=== PATIENT | female | born 1985 | race Caucasian/White ===

== ENCOUNTER 2019-11-02 13:03 | Emergency (ER) | payer BC, SELFPAY ==
--- NOTE | ~2019-11-02 | CT_ITS ---
EXAMINATION: CT abdomen pelvis w con INDICATION: Hematochezia TECHNIQUE: Computed tomographic images of the abdomen and pelvis were obtained after the administrati on of 100 cc of Omnipaque 350 intravenous contrast. The dose-length product (DLP) was 1032.06 mGy-cm. Automated exposure control and iterative reconstruction technique were employed. COMPARISON: 04/09/2018 FINDINGS: The lung bases are clear. The heart size is normal. The liver, spleen, pancreas, gallbladde r, and adrenal glands are normal. The kidneys are unremarkable. The appendix is normal. No pathologic ally enlarged abdominal or pelvic lymph nodes are identified. There is no free intraperitoneal gas or evidence of bowel obstruction. There is a 2.2 cm left adnexal cyst. The visualized osseous structure s are unremarkable. IMPRESSION: 1. No CT correlate for the patient's symptoms. Reviewed, dictated and finalized at location A.
[2019-11-02 13:06] VITALS: BP 144/96; PULSE 83; RESP 18; TEMP 36.2; O2SAT 100
[2019-11-02 13:17] VITALS: BP 136/90; PULSE 71; RESP 19; O2SAT 99
[2019-11-02 13:21] VITALS: BP 140/82; PULSE 83; RESP 21
[2019-11-02 13:51] LABS: Basophils Absolute Auto 0.1 K/mm3 (0.0-0.1); Basophils Percent Auto 0.8 % (0.2-1.2); Eosinophils Absolute Auto 0.4 K/mm3 (0-0.3); Eosinophils Percent Auto 4.1 % (0-4.4); Hematocrit 37.2 % (37.0-47.0); Hemoglobin 13.1 g/dL (12.0-15.0); Immature Granulocyte Absolute 0.05 K/mm3 (0.00-0.031); Immature Granulocyte Percent A 0.5 % (0-0.5); Lymphocytes Absolute Auto 3.14 K/mm3 (0.9-3.2); Lymphocytes Percent Auto 32.2 % (18.3-44.2); Mean Corpuscular HGB Conc 35.2 g/dl (32-36); Mean Corpuscular Volume 85.3 fl (80-100); Mean Platelet Volume 10.3 fl (7.4-10.4); Monocytes Absolute Auto 0.6 K/mm3 (0.1-0.6); Monocytes Percent Auto 6.1 % (2.6-8.5); Neutrophils Absolute Auto 5.5 K/mm3 (1.3-6.7); Neutrophils Percent Auto 56.3 % (45.5-73.1); Platelet Count Result 247 k/mm3 (150-375); Red Blood Count 4.36 M/mm3 (4.2-5.4); Red Cell Distribution Width 12.5 % (11.5-14.5); White Blood Count 9.8 K/mm3 (4.5-10.0)
[2019-11-02 14:09] LABS: Alanine Aminotransferase 60 U/L (4-35); Albumin Level 4.5 g/dL (3.5-5.1); Alkaline Phosphatase 74 U/L (38-126); Aspartate Amino Transferase 48 U/L (14-36); Bilirubin,Total 0.4 mg/dL (0.2-1.3); Blood Urea Nitrogen 8 mg/dL (7-17); Calcium 8.8 mg/dL (8.4-10.2); Carbon Dioxide 24 mmol/L (22-30); Chloride 102 mmol/L (98-107); Estimated CRCL calculation 139 ml/min; Estimated Glomerular Filt Rate > 60; Glucose 144 mg/dL (65-105); Lipase 38 U/L (23-300); Potassium 3.9 mmol/L (3.4-5.0); Sodium 134 mmol/L (137-145)
--- NOTE | 2019-11-02 14:48 | ED.ABDPAIN ---
HPI - Abdominal Pain General Chief Complaint: Abdominal Pain Stated Complaint: bloody stools/vomiting Time Seen by Provider: 11/02/19 13:22 Source: patient Mode of arrival: ambulatory Limitations: no limitations History of Present Illness HPI narrative: Patient presents the emergency department for diarrhea x2 days. Reports she had seen bright red blood in the stool yesterday. Also reports some vomiting yesterday. Reports some lower abdominal discomfort. Denies fever, or dysuria. Related Data Home Medications Medication Instructions Recorded Confirmed trazodone 100 mg PO HS 03/06/19 03/06/19 venlafaxine 225 mg PO DAILY 03/06/19 03/06/19 Allergies Allergy/AdvReac Type Severity Reaction Status Date / Time Corticosteroids Allergy Intermediate SWELLING Verified 11/02/19 13:16 (Glucocorticoids) AT INJECTION SITE cortisone Allergy Unknown Swelling Verified 11/02/19 13:16 Review of Systems Review of Systems: Narrative: CONSTITUTIONAL: Denies fever GASTROINTESTINAL: Reports abdominal pain, nausea, vomiting, and diarrhea. GENITOURINARY: Denies dysuria or hematuria. All systems reviewed & are unremarkable except as noted in HPI and below PMFSH Past Medical History Medical History (Updated 11/02/19 @ 17:33 by Jessie Gonzáles PA-C) History of endometriosis Migraine Right ovarian cyst Surgical History Surgical History H/O arthroscopy of right knee History of removal of ovarian cyst History of tonsillectomy and adenoidectomy Social History Social History Smoking status: Never smoker Alcohol intake: current Gender identity (if verbalized by the patient): Female Exam Narrative: Exam Narrative: GENERAL: Well-appearing, well-nourished, and in no acute distress. HEAD: Normocephalic, atraumatic. EYES: EOMI. CHEST: Clear to auscultation. No respiratory distress. No wheezes rales or rhonchi HEART: Regular rate and rhythm. No murmur heard. Normal peripheral pulses. ABDOMEN: Soft, nondistended, normal active bowel sounds. Mild tenderness palpation throughout the lower abdomen, without guarding EXTREMITIES: Normal range of motion. No edema. SKIN: Warm, dry, no rash. NEURO: No focal deficits. Alert and oriented x3. PSYCH: Normal mood and affect RECTAL: Hemoccult negative. Nonthrombosed external hemorrhoid without active bleeding Course Consultations Consultation #1: Spoke with patient's primary about work-up for follow-up for new onset diabetes. Date: 11/02/19 Time: 17:31 Vital Signs Vital signs: Vital Signs Temperature 97.2 F L 11/02/19 13:06 Pulse Rate 83 11/02/19 13:06 Respiratory Rate 18 11/02/19 13:06 Blood Pressure 144/96 H 11/02/19 13:06 Pulse Oximetry 100 11/02/19 13:06 Temperature 97.2 F L 11/02/19 13:06 Pulse Rate 81 11/02/19 16:30 Respiratory Rate 16 11/02/19 16:30 Blood Pressure 139/85 11/02/19 16:30 Pulse Oximetry 100 11/02/19 16:30 MDM - Abdominal Pain MDM Narrative Medical decision making narrative: Patient presents the emergency department for vomiting and diarrhea. Patient did report some bright red blood in her stool. She was Hemoccult negative today. She did have a small, nonthrombosed external hemorrhoid. She is afebrile and nontoxic-appearing. CBC is without acute findings. Metabolic panel with mild transaminitis. Also with elevation in blood glucose to 144. I did obtain a hemoglobin A1c which was 7.2. UA without evidence of infection. Bedside negative. CT scan of the abdomen and pelvis is without acute findings. Spoke with patient's primary about work-up for follow-up for new onset diabetes. Patient is stable and felt appropriate for the outpatient evaluation. She was given warnings to return to the ER Lab Data Attestation: I reviewed the patient's lab results. Result diagrams: 11/02/19 13:44
[2019-11-02 14:58] LABS: Add Urine Microscopic? YES; Appearance Urine Clear (Clear); Bacteria Urine Trace /hpf; Bilirubin Urine Negative (Negative); Blood Urine Negative (Negative); Color Urine Yellow (Yellow); Glucose Urine UA 3+ mg/dL (Negative); Ketones Urine Negative (Negative); Leukocyte Esterase Ur Negative LEU/UL (Negative); Mucus Urine Rare /lpf; Nitrate Urine Negative (Negative); Protein Urine 1+ mg/dL (Negative); RBC Urine 0-2 /hpf (0-2); Specific Grav Ur 1.027 (1.001-1.035); Squamous Epithelial Cell Urine Few /hpf (Few); Urobilinogen Urine Negative mg/dL (<2.0); WBC Urine 0-3 /hpf
[2019-11-02 15:29] VITALS: BP 130/86; PULSE 74; RESP 19; O2SAT 99
--- NOTE | 2019-11-02 15:40 | PC.NURSE ---
called lab and spoke with Gen to add on a HGB A1C at 1539
[2019-11-02 15:52] LABS: Hemoglobin A1C 7.2 % (<5.7)
[2019-11-02] MEDS: ONDANSETRON INJ 4 MG/2 ML VIAL IV PUSH (16:29)
[2019-11-02 16:30] VITALS: BP 139/85; PULSE 81; RESP 16; O2SAT 100
[2019-11-02] MEDS: SODIUM CHLORIDE 0.9% IV 1,000 ML 999 ML IV CONT (16:30)
[2019-11-02 18:34] VITALS: BP 135/81; PULSE 63; RESP 19; O2SAT 100
== END 2019-11-02 18:35 | disposition home or self-care (01) ==
PROVIDERS: Physician Assistant; Emergency Provider Emergency Medicine; PCP Family Medicine
DX: R19.7 Diarrhea, unspecified (principal); E11.9 Type 2 diabetes mellitus without complications
CPT/HCPCS: 36415; 74177; 80053; 81001; 81025; 83036; 83690; 85025; 96365; 96375; 99284; J0131; J2405; J7030; Q9967

== ENCOUNTER 2020-03-14 17:55 | Emergency (ER) | payer BC, SELFPAY ==
[2020-03-14 18:04] VITALS: BP 130/84; PULSE 114; RESP 20; TEMP 36.7; O2SAT 100
--- NOTE | 2020-03-14 18:09 | ED.SKABFB ---
HPI - Skin/Abscess/Foreign Bdy General Chief complaint: Skin/Abscess/Foreign Body Stated complaint: rash Time Seen by Provider: 03/14/20 18:10 Source: patient and RN notes reviewed History of Present Illness HPI narrative: Patient is a 35-year-old female who presents the urgent care with complaints of a itchy tender rash to the abdomen, surrounding the laparoscopic incisions. Patient states that she had laparoscopic surgery for endometriosis on March 06. States that she did call the surgeon and was directed to take Benadryl and use hydrocortisone cream. Patient states the areas have not improved and have gotten larger in size. Patient denies of any drainage from the incisions. States that she has not been covering them with any bandages. Denies of any fever, nausea, vomiting. No other acute complaints. Denies any complications from the laparoscopic surgery. No acute distress noted. Patient aware of the plan of care. Some parts of this dictation were generated by voice recognition software and may contain typographical and/or grammatical inaccuracies. Related Data Home Medications Medication Instructions Recorded Confirmed trazodone 100 mg PO HS 03/06/19 03/14/20 venlafaxine 225 mg PO DAILY 03/06/19 11/04/19 cyclobenzaprine 10 mg PO PRN PRN 03/14/20 03/14/20 ibuprofen See Rx Instructions .ROUTE 03/14/20 03/14/20 .COMPLEX PRN montelukast 10 mg PO DAILY 03/14/20 03/14/20 ondansetron HCl 03/14/20 trazodone 03/14/20 venlafaxine 75 mg PO DAILY 03/14/20 03/14/20 Allergies Allergy/AdvReac Type Severity Reaction Status Date / Time Corticosteroids Allergy Intermediate SWELLING Verified 03/14/20 18:06 (Glucocorticoids) AT INJECTION SITE cortisone Allergy Unknown Swelling Verified 03/14/20 18:06 Review of Systems Review of Systems: Narrative: CONSTITUTIONAL: Denies fever, chills, or sweats. EYES: Denies visual changes, redness, or discharge. ENT: Denies rhinorrhea, congestion, sore throat, or otalgia. CARDIOVASCULAR: Denies chest pain, palpitations, or edema. RESPIRATORY: Denies cough or dyspnea. GASTROINTESTINAL: Denies abdominal pain, nausea, vomiting, or diarrhea. GENITOURINARY: Denies dysuria or hematuria. SKIN: Reports of an itchy raised rash surrounding the laparoscopic incisions to the abdomen MUSCULOSKELETAL: Denies back pain, joint pain, or myalgia. NEUROLOGIC: Denies headache, numbness, or weakness. All other systems reviewed are negative, except as documented in HPI. [facility] Past Medical History Medical History (Updated 03/14/20 @ 18:14 by ABDI Silverman) History of endometriosis Migraine Right ovarian cyst Surgical History Surgical History (Updated 03/14/20 @ 18:14 by ABDI Silverman) H/O arthroscopy of right knee History of removal of ovarian cyst History of tonsillectomy and adenoidectomy Family History Family History Mother Family history of mental disorder Depression Father Hypertension Grandparent Family history of pancreatic cancer Family history of lung cancer Family history of malignant neoplasm of breast Other Diabetes mellitus Family history of malignant neoplasm of male breast Social History Social History Smoking status: Never smoker Alcohol intake: current Gender identity (if verbalized by the patient): Female Comments At the time of my signature, I reviewed and agree with the nursing past medical, surgical, social, and family history. There is no relevant family history pertinent to the patient complaint. Exam Narrative: Exam Narrative: GENERAL: This is a well-nourished, well-developed patient, in no apparent distress. HEAD: normocephalic, atraumatic. EYES: PERRL. Sclera clear/white. Vision is grossly intact. EARS: External ears normal NOSE: External nose normal with no obvious nasal discharge, nares without re
== END 2020-03-14 18:20 | disposition home or self-care (01) ==
PROVIDERS: Emergency Provider Nurse Practitioner Family; PCP Family Medicine
DX: T81.49XA Infection following a procedure, other surgical site, initial encounter (principal); L08.9 Local infection of the skin and subcutaneous tissue, unspecified; L23.9 Allergic contact dermatitis, unspecified cause
CPT/HCPCS: 99213; G0463

== ENCOUNTER 2020-03-15 10:15 | Emergency (ER) | payer BC, SELFPAY ==
--- NOTE | ~2020-03-15 | CT_ITS ---
EXAMINATION: CT abdomen pelvis w con DATE: 03/15/2020 12:21 INDICATION: Abdominal pain. TECHNIQUE: Computed tomography (CT) of the abdomen and pelvis was performed with 100 mL Omnipaque 350 intravenous contrast. Automated exposure control and iterative reconstruction technique were employe d. The dose-length product was 948.43 mGy-cm. COMPARISON: CT abdomen and pelvis 11/02/2019 FINDINGS: The visualized portions of the lung bases demonstrate minimal atelectasis in right middle l obe. No pleural effusion. The heart size is normal. No pericardial effusion. The liver, gallbladder, spleen, pancreas, adrenal glands, and kidneys are normal. There are no dilated loops of bowel. The ap pendix is normal. There are no pathologically enlarged lymph nodes. There is a small volume of pelvic ascites. There are areas of fat stranding in the abdominal wall, consistent with inflammation at veronika gical sites. There is a hernia containing fat at a port site in right abdomen. There is a chronic lef t L5 pars defect. IMPRESSION: 1. Port site hernia containing fat in right lower quadrant. 2. Small volume of pelvic ascites. 3. Fat stranding in anterior abdominal wall in the areas of recent surgery, consistent with inflammat ion. Reviewed, dictated and finalized at location B. ARD WORKER IMPRESSION: 1. Port site hernia containing fat in right lower quadrant. 2. Small volume of pelvic ascites. 3. Fat stranding in anterior abdominal wall in the areas of recent surgery, con sistent with inflammation.
--- NOTE | 2020-03-15 10:49 | ED.GENADULT ---
HPI - General Adult General Chief complaint: Unspecified Stated complaint: POST OP INCISION REDNESS Time Seen by Provider: 03/15/20 10:21 Source: patient Mode of arrival: ambulatory Limitations: no limitations History of Present Illness HPI narrative: Patient is a 35-year-old female who presents with redness and swelling around her surgical sites patient had laparoscopic surgery on the third at [facility] in the last 3 days developed redness and swelling involving all of her incision sites. Patient notes mild discomfort in the abdomen with some nausea. Patient went to urgent care yesterday started on antibiotic has had 3 doses at this point and notes that the redness tenderness and swelling is increasing. Patient denies other complaints or concerns specifically no URI symptoms vaginal bleeding discharge or urinary symptoms Related Data Home Medications Medication Instructions Recorded Confirmed trazodone 100 mg PO HS 03/06/19 03/14/20 venlafaxine 225 mg PO DAILY 03/06/19 11/04/19 cyclobenzaprine 10 mg PO PRN PRN 03/14/20 03/14/20 ibuprofen See Rx Instructions .ROUTE 03/14/20 03/14/20 .COMPLEX PRN montelukast 10 mg PO DAILY 03/14/20 03/14/20 ondansetron HCl 03/14/20 trazodone 03/14/20 venlafaxine 75 mg PO DAILY 03/14/20 03/14/20 Allergies Allergy/AdvReac Type Severity Reaction Status Date / Time Corticosteroids Allergy Intermediate SWELLING Verified 03/14/20 18:06 (Glucocorticoids) AT INJECTION SITE cortisone Allergy Unknown Swelling Verified 03/14/20 18:06 Review of Systems Review of Systems: All systems reviewed & are unremarkable except as noted in HPI and below PMFSH Past Medical History Medical History (Updated 03/15/20 @ 15:06 by Jimbo Hussein PA-C) History of endometriosis Migraine Right ovarian cyst Surgical History Surgical History H/O arthroscopy of right knee History of removal of ovarian cyst History of tonsillectomy and adenoidectomy Family History Family History Mother Family history of mental disorder Depression Father Hypertension Grandparent Family history of pancreatic cancer Family history of lung cancer Family history of malignant neoplasm of breast Other Diabetes mellitus Family history of malignant neoplasm of male breast Social History Social History Smoking status: Never smoker Alcohol intake: current Gender identity (if verbalized by the patient): Female Exam Narrative: Exam Narrative: GENERAL: Well-appearing, obese, and in no acute distress. HEAD: Normocephalic, atraumatic. EYES: PERRLA and EOMI. ENT: Nares clear, no rhinorrhea or epistaxis. Mucous membranes moist. CHEST: Clear to auscultation. No respiratory distress. No wheezes rales or rhonchi HEART: Regular rate and rhythm. No murmur heard. Normal peripheral pulses. ABDOMEN: Soft, nontender, distended EXTREMITIES: Normal range of motion. No edema. SKIN: Warm, dry, no rash. Patient with erythema surrounding all of her surgical incision sites with warmth to touch no drainage no fluctuance NEURO: No focal deficits. Alert and oriented x3. Cranial nerves II through XII grossly intact PSYCH: Normal mood and affect. Course Course Emergency Course: Patient in the room at this time treated with medications with slight improvement aware of discussion with her surgeon and agrees with plan was given fluids and antibiotics and antihistamines in the emergency department Consultations Consultation #1: Discussed case with patient's surgeon who is aware of the case has reviewed the case patient to be switched to Augmentin to finish her Medrol Dosepak and to follow with her appointment in clinic and would like the patient to be discharged home at this time Date: 03/15/20 Time: 15:04 Vital Signs Vital signs: Vi
[2020-03-15 11:08] VITALS: BP 103/65; RESP 18; O2SAT 96
[2020-03-15] MEDS: SODIUM CHLORIDE 0.9% IV 1,000 ML 999 ML IV CONT (11:36)
[2020-03-15] MEDS: ONDANSETRON INJ 4 MG/2 ML VIAL IV PUSH (11:36)
[2020-03-15] MEDS: FAMOTIDINE 20 MG/2 ML VIAL IV PUSH (11:36)
[2020-03-15 11:47] LABS: Basophils Absolute Auto 0.1 K/mm3 (0.0-0.1); Basophils Percent Auto 0.4 % (0.2-1.2); Eosinophils Percent Auto 0.1 % (0-4.4); Hematocrit 42.6 % (37.0-47.0); Hemoglobin 14.9 g/dL (12.0-15.0); Immature Granulocyte Absolute 0.47 K/mm3 (0.00-0.031); Immature Granulocyte Percent A 2.1 % (0-0.5); Lymphocytes Absolute Auto 1.97 K/mm3 (0.9-3.2); Lymphocytes Percent Auto 8.7 % (18.3-44.2); Mean Corpuscular Hemoglobin 30.2 pg (26-34); Mean Corpuscular Volume 86.2 fl (80-100); Mean Platelet Volume 9.8 fl (7.4-10.4); Monocytes Absolute Auto 0.6 K/mm3 (0.1-0.6); Monocytes Percent Auto 2.5 % (2.6-8.5); Neutrophils Absolute Auto 19.6 K/mm3 (1.3-6.7); Neutrophils Percent Auto 86.2 % (45.5-73.1); Platelet Count Result 405 k/mm3 (150-375); Red Blood Count 4.94 M/mm3 (4.2-5.4); Red Cell Distribution Width 11.8 % (11.5-14.5); White Blood Count 22.7 K/mm3 (4.5-10.0)
[2020-03-15 11:50] LABS: Add Urine Microscopic? YES; Appearance Urine Clear (Clear); Bacteria Urine Trace /hpf; Bilirubin Urine Negative (Negative); Blood Urine Negative (Negative); Color Urine Yellow (Yellow); Glucose Urine UA 2+ mg/dL (Negative); Ketones Urine Negative (Negative); Leukocyte Esterase Ur Trace LEU/UL (Negative); Mucus Urine Rare /lpf; Nitrate Urine Negative (Negative); Protein Urine Negative (Negative); Specific Grav Ur 1.019 (1.001-1.035); Squamous Epithelial Cell Urine Moderate /hpf (Few); Urobilinogen Urine Negative mg/dL (<2.0)
[2020-03-15 12:06] LABS: Anion Gap 13 mmol/L (8-16); Blood Urea Nitrogen 12 mg/dL (7-17); Calcium 10.4 mg/dL (8.4-10.2); Carbon Dioxide 25 mmol/L (22-30); Chloride 99 mmol/L (98-107); Estimated CRCL calculation 117 ml/min; Estimated Glomerular Filt Rate > 60; Glucose 175 mg/dL (65-105); Potassium 4.3 mmol/L (3.4-5.0); Sodium 137 mmol/L (137-145)
[2020-03-15 12:09] LABS: CRP 1.7 mg/dL (<1.0)
[2020-03-15 12:54] VITALS: BP 135/86; PULSE 99; RESP 18; O2SAT 97
[2020-03-15 15:45] VITALS: BP 140/83; PULSE 104; RESP 18; O2SAT 98
== END 2020-03-15 15:46 | disposition home or self-care (01) ==
PROVIDERS: Emergency Medicine Emergency Medical Services; Emergency Provider Emergency Medicine; PCP Family Medicine
DX: L03.311 Cellulitis of abdominal wall (principal)
CPT/HCPCS: 36415; 74177; 80048; 81001; 81025; 85025; 86140; 96361; 96365; 96375; 99284; J0131; J2405; J2543; J7030; Q9967

== ENCOUNTER 2020-04-14 10:36 | Emergency (ER) | payer BC, SELFPAY ==
--- NOTE | ~2020-04-14 | XR_ITS ---
EXAMINATION: XR chest 2V DATE: 04/14/2020 11:23 INDICATION: Cough. Shortness of breath. TECHNIQUE: Frontal and lateral views of the chest were obtained. COMPARISON: Chest single view 08/12/2015, CT abdomen and pelvis 03/15/2020 FINDINGS: The chest demonstrates clear lungs without pneumonia, pleural effusion, or pneumothorax. Th e heart size is normal. IMPRESSION: 1. No acute cardiopulmonary disease. Reviewed, dictated and finalized at location B. [facility] N[facility]ITIONIST
[2020-04-14 11:05] VITALS: BP 124/86; PULSE 98; RESP 20; TEMP 36.9; O2SAT 97
--- NOTE | 2020-04-14 11:36 | ED.URI ---
HPI - URI/Sore Throat General Chief Complaint: Upper Respiratory Infection Stated Complaint: chest pain/sob History of Present Illness HPI Narrative: This is a 35-year-old female comes in complaining of increased shortness of breath patient states she has been diagnosed with COVID-19 on but her shortness of breath is getting worse. Patient states she called her primary care provider who told her to come in to have a chest x-ray completed. Patient states she has been having a fever denies taking anything for her symptoms. Patient states that shortness of breath is worse when she lays down Related Data Home Medications Medication Instructions Recorded Confirmed trazodone 100 mg PO HS 03/06/19 04/14/20 venlafaxine 225 mg PO DAILY 03/06/19 04/14/20 ibuprofen See Rx Instructions .ROUTE 03/14/20 04/14/20 .COMPLEX PRN montelukast 10 mg PO DAILY 03/14/20 04/14/20 etonogestrel [Implanon] 1 implant SUBDERMAL ONCE 04/14/20 04/14/20 hydroxyzine HCl 25 mg PO BID PRN 04/14/20 04/14/20 Allergies Allergy/AdvReac Type Severity Reaction Status Date / Time Corticosteroids Allergy Intermediate SWELLING Verified 04/14/20 11:10 (Glucocorticoids) AT INJECTION SITE cortisone Allergy Unknown Swelling Verified 04/14/20 11:10 Review of Systems Review of Systems: Narrative: CONSTITUTIONAL: Denies fever, chills, or sweats. EYES: Denies visual changes, redness, or discharge. ENT: Denies rhinorrhea, congestion, sore throat, or otalgia. CARDIOVASCULAR:Denies chest pain, palpitations, or edema. RESPIRATORY: Reports cough or dyspnea. GASTROINTESTINAL: Denies abdominal pain, nausea, vomiting, or diarrhea. GENITOURINARY: Denies dysuria or hematuria. SKIN:[Denies rash or itching. MUSCULOSKELETAL:Denies back pain, joint pain, or myalgia. NEUROLOGIC: Denies headache, numbness, or weakness. PSYCHIATRIC:Denies anxiety or depression PMF Past Medical History Medical History (Updated 04/14/20 @ 11:43 by Alondra Shah NP) History of endometriosis Migraine Right ovarian cyst Surgical History Surgical History H/O arthroscopy of right knee History of removal of ovarian cyst History of tonsillectomy and adenoidectomy Family History Family History Mother Family history of mental disorder Depression Father Hypertension Grandparent Family history of pancreatic cancer Family history of lung cancer Family history of malignant neoplasm of breast Other Diabetes mellitus Family history of malignant neoplasm of male breast Social History Social History Smoking status: Never smoker Alcohol intake: current Gender identity (if verbalized by the patient): Female Comments At time as signature, I have reviewed and agree with nursing past medical, social, surgical and family history. Please see nursing chart for further information. There is no relevant family history pertinent to the presenting complaint. Exam Narrative: Exam Narrative: GENERAL:, well-nourished, Patient appears uncomfortable HEAD:Normocephalic, atraumatic. EYES: PERRLA and EOMI. ENT: Nares clear, no rhinorrhea or epistaxis. Mucous membranes moist. Notable nasal congestion NECK: Supple. CHEST: No respiratory distress. Able to take deep full breaths clear to auscultation HEART: Regular rate and rhythm slightly tacky. No murmur heard. Normal peripheral pulses. ABDOMEN: Soft, nontender, nondistended, normal active bowel sounds. EXTREMITIES: Normal range of motion. No edema. SKIN: Warm, dry, no rash. NEURO: No focal deficits. Alert and oriented x3. Course Course Emergency Course: Chest x-ray reviewed by myself Results FINDINGS: The chest demonstrates clear lungs without pneumonia, pleural effusion, or pneumothorax. The heart size is normal. IMPRESSION: 1. No acute
== END 2020-04-14 11:57 | disposition home or self-care (01) ==
PROVIDERS: Emergency Provider Nurse Practitioner Family; PCP Family Medicine
DX: U07.1 COVID-19 (principal); N80.9 Endometriosis, unspecified; F41.9 Anxiety disorder, unspecified; F32.9 Major depressive disorder, single episode, unspecified; E11.9 Type 2 diabetes mellitus without complications
CPT/HCPCS: 71046; 99213; G0463

== ENCOUNTER 2020-06-16 08:35 | Outpatient (CLI) | payer BC, SELFPAY ==
--- NOTE | 2020-06-16 08:37 | ECG_ITS ---
Measurements Intervals [place] Rate: 91 P: 21 OR: 136 QRS: 6 QRSD: 85 T: 20 QT: 367 QTc: 453 Interpretive Statements SINUS RHYTHM POOR R WAVE PROGRESSION, ANTERIOR LEADS BORDERLINE T WAVE ABNORMALITY- ANTEROLATERAL LEADS BASELINE ARTIFACT- I, II, III, AVR, AVL, AVF BORDERLINE ECG Electronically Signed On 06-16-2020 9:25:41 FIELD CONTACT TECHNICIAN by Jd Saez D.O.
[2020-06-16 09:19] LABS: Anion Gap 13 mmol/L (8-16); Blood Urea Nitrogen 10 mg/dL (7-17); Carbon Dioxide 24 mmol/L (22-30); Chloride 103 mmol/L (98-107); Estimated Glomerular Filt Rate > 60; Glucose 122 mg/dL (65-105); Potassium 4.1 mmol/L (3.4-5.0); Sodium 140 mmol/L (137-145)
== END 2020-06-16 08:36 | disposition home or self-care (01) ==
LOC: ANHSURGERY 08:37
PROVIDERS: Anesthesiology; PCP Family Medicine; Visit Provider Obstetrics & Gynecology
DX: Z01.818 Encounter for other preprocedural examination (principal); E11.9 Type 2 diabetes mellitus without complications
CPT/HCPCS: 36415; 80048; 93005

== ENCOUNTER → 2020-06-17 01:06 | Outpatient (CLI) | payer BC, SELFPAY ==
[2020-06-17 19:48] LABS: SARS-CoV-2 RNA PCR Negative
== END ==
PROVIDERS: Family Provider Internal Medicine; PCP Family Medicine; Visit Provider Obstetrics & Gynecology
DX: Z01.812 Encounter for preprocedural laboratory examination (principal); Z20.822 Contact with and (suspected) exposure to COVID-19
CPT/HCPCS: C9803; U0003; U0005

== ENCOUNTER 2020-06-21 01:36 | Day surgery (SDC) | payer BC, SELFPAY ==
[2020-06-15 14:51] VITALS: BMI 35.6
--- NOTE | 2020-06-20 12:59 | WPDANESEPPF ---
Anes - Initial Pre Proc Eval Procedure: Operation Date: 06/21/20 09:45 Proposed Procedures p Laparoscopic Right Salpingo-Oophorectomy - Kacey Main MD Date/Time: 06/20/20 12:59 Surgeon: Kacey Main MD Pre Op Diagnosis: Cyst On Right Ovary Patient Data Age: 35 Gender: F Height: 1.57 m Weight: 88.5 kg Allergies Allergy/AdvReac Type Severity Reaction Status Date / Time Corticosteroids Allergy Intermediate SWELLING Verified 06/15/20 14:24 (Glucocorticoids) AT INJECTION SITE cortisone Allergy Intermediate Swelling Verified 06/21/20 07:59 Home Medications Medication Instructions Recorded Confirmed Type trazodone 100 mg PO HS 03/06/19 06/21/20 History venlafaxine 225 mg PO DAILY 03/06/19 06/21/20 History blood sugar diagnostic #50 each 11/04/19 11/04/19 Rx blood-glucose meter #1 each 11/04/19 11/04/19 Rx lancets #50 each 11/04/19 11/04/19 Rx flash glucose scanning reader #1 each 11/30/19 Rx metformin 500 mg tablet See Rx Instructions .ROUTE 02/24/20 06/21/20 Rx .COMPLEX #180 tablet montelukast 10 mg PO DAILY 03/14/20 06/21/20 History etonogestrel [Implanon] 1 implant SUBDERMAL ONCE 04/14/20 06/21/20 History hydroxyzine HCl 25 mg PO BID PRN 04/14/20 06/21/20 History ondansetron 8 mg disintegrating 8 mg PO Q12H PRN #14 tablet 06/05/20 06/21/20 Rx tablet flash glucose sensor See Rx Instructions .ROUTE 06/06/20 06/15/20 Rx .COMPLEX #1 ea Patient hx anesthesia problems: none Family hx anesthesia problems: none PMFSH Past Medical History Medical History (Updated 06/20/20 @ 12:59 by Luis Daniel Manning DO) Elevated liver enzymes History of endometriosis Migraine PID (pelvic inflammatory disease) Right ovarian cyst Type 2 diabetes mellitus without complications Surgical History Surgical History H/O arthroscopy of right knee History of removal of ovarian cyst History of tonsillectomy and adenoidectomy Family History Family History Mother Family history of mental disorder Depression Father Hypertension Grandparent Family history of pancreatic cancer Family history of lung cancer Family history of malignant neoplasm of breast Other Diabetes mellitus Family history of malignant neoplasm of male breast Social History Social History Smoking status: Never smoker Gender identity (if verbalized by the patient): Female Spiritual care concerns: No Anes - Eval Final PreProcedure Day of Procedure 06/20/20 12:59 Patient weight: obese Heart: regular rate and rhythm Lungs: clear to auscultation and normal air movement Airway: Mallampati scale class II Neurological: alert and oriented Last oral intake: >/= 8 hours ASA classification: III Emergent: no Anesthetic plan: proceed Anesthesia type and monitoring: general ETT and standard monitoring Informed Consent: The patient's anesthetic plan and its attendant risks and benefits were discussed with the patient/family/POA. Questions were solicited and answers provided to the satisfaction of the patient/family/POA.
[2020-06-21] VITALS (14 sets, daily range): BP systolic 91–132; BP diastolic 56–101; PULSE 95–117; RESP 14–22; TEMP 36.6–36.8; O2SAT 93–98
[2020-06-21] MEDS: LACTATED RINGERS 1,000 ML 30 ML IV CONT ×2 (08:10→12:29)
[2020-06-21 08:20] LABS: Glucose Point of Care 135 (65-105)
[2020-06-21] MEDS: ACETAMINOPHEN 500 MG TABLET 1000 MG PO (08:32)
[2020-06-21] MEDS: KETOROLAC 15 MG/ML VIAL (*BKC) IV PUSH (08:33)
--- NOTE | 2020-06-21 10:14 | WPDHPUPDATE1 ---
History and Physical Update Update Date/Time: 06/21/20 10:14 History and Physical has been reviewed, including an updated exam of the patient. There are NO changes in the patient's condition. Risks, benefits, and alternatives have been discussed and questions answered. Patient agrees to proceed with procedure.
--- NOTE | 2020-06-21 12:14 | SUR.OPER ---
EBL:20cc
--- NOTE | 2020-06-21 12:22 | P.OP_ITS ---
Procedure Note - Detailed Date of procedure: 06/21/20 Pre-op diagnosis: Cyst On Right Ovary, pelvic pain Post-op diagnosis: same (Left ovarian cyst, pelvic adhesions, endometriosis) Procedure performed: Adhesiolysis, left ovarian cystectomy, right salpingo- oophorectomy, resection of endometriosis. Description of procedure: The patient was taken the operating room. She was prepped and draped in the dorsal lithotomy position after induction of general anesthesia. A 5 mm left upper quadrant incision was made in the abdominal skin with a scalpel. A 5 mm trocar was inserted the intra-abdominal cavity under direct visualization of the scope. A 11 mm left lower quadrant incision was made with the scalp on the abdominal skin and a 11 mm trocar was inserted the intra-abdominal cavity under direct visualization of the scope. A 5 mm in fraumbilical incision was made with scalpel and a 5 mm trocar was inserted into the intra-abdominal cavity under direct visualization of the scope. An additional 4th trocar was placed in the right lower quadrant. This was placed through a 5 mm skin incision, made with a scalpel, 5 mm trocar was placed. The right ovary and fallopian tube was dissected off of the right pelvic wall. It was densely adherent to the right pelvic wall. The infundibulum pelvic ligament was cauterized after identification of the ureter. It was transected with scissors. The para ovarian tissue was dissected. It was cauterized and transected with scissors. The suspensory ligament the ovary was cauterized transected. The tube and ovary came out the left lower quadrant trocar, after it was amputated. The cyst on the left ovary was cauterized and transected. The left ovary had be dissected off the left pelvic sidewall. Adhesiolysis was performed on both ovaries. This is meant to about 30 minutes dissection. The ureter was dissected out on the right. The peritoneal surfaces were very densely fibrotic and immobile. A peritoneal lesion in the posterior cul-de-sac at the level the cervix and right adnexa was dissected out. This was done with sharp and blunt dissection using cautery. The ovary had been dissected out and the anatomy of the ovary was away from the area dissection. There was marked blood supply to this area. A considerable amount of cautery was focused in this area of the dissection and cervix. The pelvis was irrigated with copious amounts of normal saline. The pneumoperit oneum was reduced. The trocars were removed. The patient was taken recovery room stable condition. Sponge lap and needle counts were correct x2. Anesthesia: GETA Surgeon: Kacey Main MD Estimated blood loss (mL): 50 Drains: No Packing: No Complications: No immediate complications Condition: stable Disposition: PACU Findings: Dense scarring throughout the posterior cul-de-sac, immobile peritoneum, adhesions between the posterior cul-de-sac and the ovaries, apparent endometrial implants in the posterior cul-de-sac.
[2020-06-21 12:37] LABS: Glucose Point of Care 112 (65-105)
[2020-06-21] MEDS: fentaNYL CITRATE INJ (*CRX) 100 MCG/2 ML VIAL 25 MCG IV PUSH ×8 (13:25→14:35)
[2020-06-21] MEDS: HYDROmorphone HCL INJ (*CRX) 1 MG/ML SYR IV PUSH (14:40)
[2020-06-21] MEDS: oxyCODONE HCL (*CRX) 5 MG TAB IR PO (15:15)
[2020-06-21] MEDS: ONDANSETRON INJ 4 MG/2 ML VIAL IV PUSH (15:18)
== END 2020-06-21 15:58 | disposition home or self-care (01) ==
PROVIDERS: Family Provider Internal Medicine; PCP Family Medicine; Visit Provider Obstetrics & Gynecology
PROC: (CPT 49320; principal; 2020-06-21 09:45)
DX: N83.01 Follicular cyst of right ovary (principal); N73.6 Female pelvic peritoneal adhesions (postinfective); N94.89 Other specified conditions associated with female genital organs and menstrual cycle; N83.202 Unspecified ovarian cyst, left side; N80.3 Endometriosis of pelvic peritoneum; R10.2 Pelvic and perineal pain; E11.9 Type 2 diabetes mellitus without complications; Z79.84 Long term (current) use of oral hypoglycemic drugs; E66.9 Obesity, unspecified; Z68.35 Body mass index [BMI] 35.0-35.9, adult
CPT/HCPCS: 58661; 58662; 82948; 88304; 88305; A9270; J0330; J1170; J1885; J2250; J2370; J2405; J2704; J2710; J3010; J7030; J7120

== ENCOUNTER 2020-06-26 10:43 | Emergency (ER) | payer BC, SELFPAY ==
--- NOTE | ~2020-06-26 | XR_ITS ---
EXAMINATION: XR chest 1V portable EXAM DATE: 06/26/2020 11:52 INDICATION: Postoperative fever. TECHNIQUE: Portable AP frontal chest x-ray was obtained. Comparison is made to prior examination from 04/14/2020. FINDINGS: The lungs are clear. There are no pleural effusions. Cardiac silhouette is prominent but magnified on this AP technique. There is no pneumothorax suspected. The bones and soft tissues are unremarkable. IMPRESSION: No acute cardiopulmonary findings. Reviewed, dictated and finalized at location B. BREAK CUTTER
--- NOTE | ~2020-06-26 | CT_ITS ---
EXAMINATION: CT abdomen pelvis w con DATE: 06/26/2020 15:27 INDICATION: Abdominal pain. TECHNIQUE: Computed tomography (CT) of the abdomen and pelvis was performed with 100 mL Omnipaque 350 intravenous contrast. Automated exposure control and iterative reconstruction technique were employe d. The dose-length product was 734.27 mGy-cm. COMPARISON: CT abdomen and pelvis 03/15/2020 FINDINGS: The visualized portions of the lung bases demonstrate minimal atelectasis in right middle l obe. No pleural effusion. The heart size is normal. No pericardial effusion. There is diffuse hepatic steatosis. The gallbladder, spleen, pancreas, adrenal glands, and kidneys are normal. There are no d ilated loops of bowel. The appendix is normal. There is a small volume of pelvic ascites. There are p unctate foci of free intraperitoneal gas in the pelvis, consistent with recent surgery. There are are as of fat stranding in the anterior abdominal wall, consistent with sites of recent surgery. There ar e no pathologically enlarged lymph nodes. There is a chronic left L5 pars defect. IMPRESSION: 1. Fat stranding in anterior abdominal wall in areas of recent surgery, consistent with inflammation. 2. Small volume of pelvic ascites. Reviewed, dictated and finalized at location A. SCREW MAN IMPRESSION: 1. Fat stranding in anterior abdominal wall in areas of recent surgery, consist ent with inflammation. 2. Small volume of pelvic ascites.
[2020-06-26 11:14] VITALS: BP 139/91; PULSE 105; RESP 20; TEMP 36.8; O2SAT 99
[2020-06-26 11:27] LABS: Basophils Absolute Auto 0.1 K/mm3 (0.0-0.1); Basophils Percent Auto 0.9 % (0.2-1.2); Eosinophils Absolute Auto 0.8 K/mm3 (0-0.3); Eosinophils Percent Auto 8.1 % (0-4.4); Hemoglobin 13.8 g/dL (12.0-15.0); Immature Granulocyte Absolute 0.06 K/mm3 (0.00-0.031); Immature Granulocyte Percent A 0.6 % (0-0.5); Lymphocytes Absolute Auto 3.28 K/mm3 (0.9-3.2); Lymphocytes Percent Auto 32.3 % (18.3-44.2); Mean Corpuscular HGB Conc 34.5 g/dl (32-36); Mean Corpuscular Hemoglobin 30.5 pg (26-34); Mean Corpuscular Volume 88.3 fl (80-100); Mean Platelet Volume 9.4 fl (7.4-10.4); Monocytes Absolute Auto 0.6 K/mm3 (0.1-0.6); Monocytes Percent Auto 5.5 % (2.6-8.5); Neutrophils Absolute Auto 5.4 K/mm3 (1.3-6.7); Neutrophils Percent Auto 52.6 % (45.5-73.1); Platelet Count Result 282 k/mm3 (150-375); Red Blood Count 4.53 M/mm3 (4.2-5.4); Red Cell Distribution Width 12.2 % (11.5-14.5); White Blood Count 10.2 K/mm3 (4.5-10.0)
--- NOTE | 2020-06-26 11:30 | PC.NURSE ---
patient brought back to ED room H3 with c/o redness around her abdominal incisions after procedure last week. has 4 small incision on her abdomen.
--- NOTE | 2020-06-26 11:32 | ED.GENADULT ---
HPI - General Adult General Chief complaint: Wound/Laceration Stated complaint: Redness at Incision Site, Nausea Time Seen by Provider: 06/26/20 11:25 History of Present Illness HPI narrative: Patient presents to emergency department from home for postop complication. Patient states that on June 21 she had her right ovary removed by Dr. Main. She states that on Friday she had a subjective fever she is also has been having nausea and diarrhea. She states she has been having some mild diffuse postsurgical abdominal pain that is intermittent. She also notes she has been having some redness around her 3 abdominal wounds states they do not itch and the redness is localized she denies any chest pain shortness of breath vomiting or any other symptoms the patient had COVID-19 at the beginning of April 2020 Related Data Home Medications Medication Instructions Recorded Confirmed trazodone 100 mg PO HS 03/06/19 06/21/20 venlafaxine 225 mg PO DAILY 03/06/19 06/21/20 montelukast 10 mg PO DAILY 03/14/20 06/21/20 etonogestrel 1 implant SUBDERMAL ONCE 04/14/20 06/21/20 hydroxyzine HCl 25 mg PO BID PRN 04/14/20 06/21/20 Allergies Allergy/AdvReac Type Severity Reaction Status Date / Time Corticosteroids Allergy Intermediate SWELLING Verified 06/26/20 11:18 (Glucocorticoids) AT INJECTION SITE cortisone Allergy Intermediate Swelling Verified 06/26/20 11:18 Review of Systems Review of Systems: Narrative: Gen.: Subjective fevers Eyes: Denies eye pain or visual change ENT: Denies congestion Respiratory: Denies shortness of breath or cough CV: Denies chest pain or palpitations GI see HPI Musculoskeletal: Denies back pain or muscle pain Neuro: Denies numbness, tingling, weakness or focal weakness Skin: Denies rash Except as documented, all other systems reviewed and negative FOR[facility]LY [facility], LATER [facility] Past Medical History Medical History Elevated liver enzymes History of endometriosis Migraine PID (pelvic inflammatory disease) Right ovarian cyst Type 2 diabetes mellitus without complications Surgical History Surgical History H/O arthroscopy of right knee History of removal of ovarian cyst History of tonsillectomy and adenoidectomy Family History Family History Mother Family history of mental disorder Depression Father Hypertension Grandparent Family history of pancreatic cancer Family history of lung cancer Family history of malignant neoplasm of breast Other Diabetes mellitus Family history of malignant neoplasm of male breast Social History Social History Smoking status: Never smoker Gender identity (if verbalized by the patient): Female Spiritual care concerns: No Exam Narrative: Exam Narrative: APPEARANCE: No acute distress, nontoxic, resting in bed EYES: EOMI HEENT: Normocephalic, atraumatic, OMM RESPIRATORY: No respiratory distress Clear to auscultation bilaterally with no rhonchi wheezing or rales. CARDIOVASCULAR: Regular rate and rhythm without murmurs rubs or gallops. ABDOMINAL: Soft, nontender, nondistended, no rebound or guarding 3 healing surgical wounds over the abdomen with some localized erythema around each wound no open wounds no drainage no fluctuance MUSCULOSKELETAl: Moves all extremities. No clubbing, cyanosis or edema. NEURO: Awake and alert. Following commands, speech normal, no focal deficits SKIN:: Warm, dry. No rashes lesions or abrasions PSYCHIATRIC: Normal affect/mood, Course Course Emergency Course: Called and discussed with Dr. Main presentation work-up this time is comfortable patient being discharged home he believes the patient is likely having a localized allergic reaction he states the patient is currently on antibiotics that he had prescribed for the patient
[2020-06-26 11:40] LABS: Alanine Aminotransferase 90 U/L (4-35); Albumin Level 4.7 g/dL (3.5-5.1); Alkaline Phosphatase 59 U/L (38-126); Anion Gap 10 mmol/L (8-16); Aspartate Amino Transferase 55 U/L (14-36); Bilirubin,Total 0.3 mg/dL (0.2-1.3); Blood Urea Nitrogen 11 mg/dL (7-17); Calcium 9.6 mg/dL (8.4-10.2); Carbon Dioxide 23 mmol/L (22-30); Chloride 103 mmol/L (98-107); Estimated CRCL calculation 139 ml/min; Estimated Glomerular Filt Rate > 60; Glucose 117 mg/dL (65-105); Potassium 4.3 mmol/L (3.4-5.0); Sodium 136 mmol/L (137-145)
[2020-06-26 12:14] LABS: Add Urine Microscopic? YES; Appearance Urine Clear (Clear); Bacteria Urine Trace /hpf; Bilirubin Urine Negative (Negative); Blood Urine 2+ (Negative); Color Urine Yellow (Yellow); Glucose Urine UA Negative (Negative); Ketones Urine Negative (Negative); Leukocyte Esterase Ur Negative LEU/UL (Negative); Mucus Urine Rare /lpf; Nitrate Urine Negative (Negative); Protein Urine Negative (Negative); Squamous Epithelial Cell Urine Many /hpf (Few); Urobilinogen Urine Negative mg/dL (<2.0); WBC Urine 0-3 /hpf
[2020-06-26] MEDS: ONDANSETRON HCL ODT 4 MG TABLET (13:22)
--- NOTE | 2020-06-26 15:21 | PC.NURSE ---
patient to CT
== END 2020-06-26 16:30 | disposition home or self-care (01) ==
PROVIDERS: Emergency Medicine; Emergency Provider Emergency Medicine; PCP Family Medicine
DX: G89.18 Other acute postprocedural pain (principal); R10.9 Unspecified abdominal pain; T78.40XA Allergy, unspecified, initial encounter; N80.9 Endometriosis, unspecified; E11.9 Type 2 diabetes mellitus without complications; Z86.16 Personal history of COVID-19
CPT/HCPCS: 36415; 71045; 74177; 80053; 81001; 81025; 85025; 99284; A9270; Q9967

== ENCOUNTER 2020-11-09 09:46 | Outpatient (CLI) | payer BC, SELFPAY ==
[2020-11-09 10:06] LABS: Basophils Absolute Auto 0.1 K/mm3 (0.0-0.1); Eosinophils Absolute Auto 0.7 K/mm3 (0-0.3); Eosinophils Percent Auto 7.5 % (0-4.4); Hematocrit 39.5 % (37.0-47.0); Hemoglobin 13.7 g/dL (12.0-15.0); Immature Granulocyte Absolute 0.05 K/mm3 (0.00-0.031); Immature Granulocyte Percent A 0.5 % (0-0.5); Lymphocytes Absolute Auto 3.14 K/mm3 (0.9-3.2); Lymphocytes Percent Auto 31.7 % (18.3-44.2); Mean Corpuscular HGB Conc 34.7 g/dl (32-36); Mean Corpuscular Hemoglobin 30.2 pg (26-34); Mean Platelet Volume 10.1 fl (7.4-10.4); Monocytes Absolute Auto 0.7 K/mm3 (0.1-0.6); Monocytes Percent Auto 6.7 % (2.6-8.5); Neutrophils Absolute Auto 5.2 K/mm3 (1.3-6.7); Neutrophils Percent Auto 52.6 % (45.5-73.1); Platelet Count Result 262 k/mm3 (150-375); Red Blood Count 4.54 M/mm3 (4.2-5.4); Red Cell Distribution Width 12.3 % (11.5-14.5); White Blood Count 9.9 K/mm3 (4.5-10.0)
[2020-11-09 10:18] LABS: Anion Gap 11 mmol/L (8-16); Blood Urea Nitrogen 9 mg/dL (7-17); Calcium 9.7 mg/dL (8.4-10.2); Carbon Dioxide 26 mmol/L (22-30); Chloride 100 mmol/L (98-107); Estimated Glomerular Filt Rate > 60; Glucose 140 mg/dL (65-105); Potassium 4.2 mmol/L (3.4-5.0); Sodium 137 mmol/L (137-145)
== END 2020-11-09 09:47 | disposition home or self-care (01) ==
LOC: ANHSURGERY 09:50
PROVIDERS: Anesthesiology; PCP Family Medicine; Visit Provider Obstetrics & Gynecology
DX: R10.2 Pelvic and perineal pain (principal); E11.9 Type 2 diabetes mellitus without complications
CPT/HCPCS: 36415; 80048; 85025; 86850; 86900; 86901

== ENCOUNTER 2020-11-14 02:21 | Day surgery (SDC) | payer BC, SELFPAY ==
[2020-11-08 10:21] VITALS: BMI 37.8
[2020-11-14] VITALS (12 sets, daily range): BP systolic 97–133; BP diastolic 44–80; PULSE 88–106; RESP 13–20; TEMP 36.7–37.5; O2SAT 92–99
--- NOTE | 2020-11-14 07:41 | SUR.PREOP ---
Confirmed with patient and Dr. Main that patient is having left sided Saslpingo-oophorectomy performed today as patient has already had right sided salpingo-oophorectomy
[2020-11-14 08:17] LABS: Glucose Point of Care 125 mg/dl (65-105)
[2020-11-14] MEDS: LACTATED RINGERS 1,000 ML 30 ML IV CONT ×2 (08:20→12:04)
[2020-11-14] MEDS: KETOROLAC 15 MG/ML VIAL (*BKC) IV PUSH (08:21)
[2020-11-14] MEDS: ACETAMINOPHEN 500 MG TABLET 1000 MG PO (08:21)
--- NOTE | 2020-11-14 08:26 | WPDANESEPPF ---
Anes - Initial Pre Proc Eval Procedure: Operation Date: 11/14/20 09:30 Proposed Procedures p Total Laparoscopic Hysterectomy, Bilateral Salpingo-Oophorectomy - Kacey Main MD Date/Time: 11/14/20 08:26 Surgeon: Kacey Main MD Pre Op Diagnosis: pelvic pain, ovarian cyst Patient Data Age: 35 Gender: F Height: 1.55 m Weight: 90.6 kg Allergies Allergy/AdvReac Type Severity Reaction Status Date / Time Corticosteroids Allergy Intermediate SWELLING Verified 06/26/20 11:18 (Glucocorticoids) AT INJECTION SITE cortisone Allergy Intermediate Swelling Verified 06/26/20 11:18 exofin glue Allergy Mild Rash Uncoded 11/08/20 11:03 Surgical prep Allergy Mild Rash Uncoded 11/08/20 11:04 Home Medications Medication Instructions Recorded Confirmed Type trazodone 100 mg PO HS 03/06/19 11/14/20 History venlafaxine 225 mg PO HS 03/06/19 11/14/20 History blood sugar diagnostic #50 each 11/04/19 11/14/20 Rx blood-glucose meter #1 each 11/04/19 11/14/20 Rx lancets #50 each 11/04/19 11/14/20 Rx flash glucose scanning reader #1 each 11/30/19 11/14/20 Rx etonogestrel 1 implant SUBDERMAL ONCE 04/14/20 11/14/20 History hydroxyzine HCl 25 mg PO BID PRN 04/14/20 11/14/20 History metformin 500 mg tablet See Rx Instructions .ROUTE 07/05/20 11/14/20 Rx .COMPLEX #180 tablet montelukast 10 mg tablet 10 mg PO DAILY #90 tablet 09/11/20 11/14/20 Rx flash glucose sensor See Rx Instructions .ROUTE 10/17/20 11/14/20 Rx .COMPLEX #1 ea ondansetron 8 mg disintegrating 8 mg PO Q12H PRN #14 tablet 10/24/20 11/14/20 Rx tablet albuterol sulfate 90 mcg INHALATION PRN PRN 11/08/20 11/14/20 History Laboratory Tests 11/14/20 08:12 POC Capillary Glucose 125 mg/dl H mg/dl (65-105) Patient hx anesthesia problems: none Family hx anesthesia problems: none PMFSH Past Medical History Medical History (Updated 11/13/20 @ 15:22 by Luis Daniel Manning DO) Anxiety Asthma Depression Elevated liver enzymes GERD (gastroesophageal reflux disease) History of endometriosis Migraine PID (pelvic inflammatory disease) PTSD (post-traumatic stress disorder) Right ovarian cyst Type 2 diabetes mellitus without complications Surgical History Surgical History (Updated 11/13/20 @ 15:22 by Luis Daniel Manning DO) H/O arthroscopy of right knee History of appendectomy History of removal of ovarian cyst History of tonsillectomy and adenoidectomy Family History Family History Mother Family history of mental disorder Depression Father Hypertension Grandparent Family history of pancreatic cancer Family history of lung cancer Family history of malignant neoplasm of breast Other Diabetes mellitus Family history of malignant neoplasm of male breast Social History Social History Smoking status: Never smoker Second hand tobacco smoke exposure: No Drinks per week: 4 Alcohol use details: hard alcohol Substance use: never Substance use type: does not use Living arrangements: alone Gender identity (if verbalized by the patient): Female Spiritual care concerns: No Anes - Eval Final PreProcedure Day of Procedure 11/14/20 08:26 Patient weight: obese Heart: regular rate and rhythm Lungs: clear to auscultation and normal air movement Airway: Mallampati scale class II Neurological: alert and oriented Last oral intake: >/= 8 hours ASA classification: III Emergent: no Anesthetic plan: proceed Anesthesia type and monitoring: general ETT and standard monitoring Informed Consent: The patient's anesthetic plan and its attendant risks and benefits were discussed with the patient/family/POA. Questions were solicited and answers provided to the satisfaction of the patient/family/POA.
--- NOTE | 2020-11-14 09:10 | WPDHPUPDATE1 ---
History and Physical Update Update Date/Time: 11/14/20 09:10 To perform Left Salpingo oophorectomy only in this procedure. History and Physical has been reviewed, including an updated exam of the patient. There are NO changes in the patient's condition. Risks, benefits, and alternatives have been discussed and questions answered. Patient agrees to proceed with procedure.
[2020-11-14] MEDS: ceFAZolin 2 GM/D5W 50 ML 2 GM/50 ML BAG IVPB (09:36)
--- NOTE | 2020-11-14 12:09 | W.PM.PROC2 ---
Procedure Note - Detailed Date of Procedure 11/14/20 Pre-op Diagnosis pelvic pain, endometriosis Post-op Diagnosis same ( pelvic adhesions) Procedure Performed Total laparoscopic hysterectomy and left salpingo oophorectomy, adhesiolysis Surgeon Kacey Main MD Anesthesia general Indications pelvic pain Findings Moderate sized uterus with a long cervix,Adhesions in the left adnexa upper involving the left fallopian tube, ovary, rectum, pelvic sidewall . Description of Procedure This patient was taken to the operating room. She was prepped and draped in the dorsal lithotomy position after induction of general anesthesia. A 5 mm skin incision was made in the left upper quadrant the abdomen. A 5 mm trocar was inserted into the intrauterine cavity under direct visualization of the scope. Pneumoperitoneum was achieved. A left lower quadrant 11 mm incision was made with scalpel. An 11 mm trocar was inserted into the anterior abdominal cavity under direct visualization the scope. A 5 mm infraumbilical incision was made with a scalpel and a 5 mm trocar was inserted the intra-abdominal cavity under direct visualization of the scope. The uterine manipulator and Coke per were placed. This was done with a speculum. The speculum was placed. The cervix was grasped with a tenaculum. The stay sutures were placed at 3 and 9:00 a.m.. The stay sutures of 0 Vicryl were brought through the appropriately sized Myrna cup. The tip of the MEAGAN manipulator was placed in the intrauterine cavity. The cup was slid into place around the cervix and into the fornices. It was locked into place. The sutures were then wrapped around the handle and tied under tension. 45 minutes of adhesiolysis was performed. This was done on the left side of the pelvis. It was performed to separate the fallopian tube and left ovary from the rectum and left pelvic sidewall. Bilateral ureteral lysis was performed. This also required adhesiolysis. This was done from the pelvic brim down to the uterine artery. This was done with careful dissection using sharp and blunt dissection. The infundibulo pelvic ligament was Isolated and cauterized with ligature cautery. This was done just adjacent to the ovary away from the ureter on the left side. The para ovarian tissue was cauterized transected with LigaSure cautery. This was done only on the left and in a stepwise fashion around to the round ligament. Bilaterally, In a stepwise fashion along the lateral aspects of the uterus the round ligament and broad ligaments were cauterized and transected down to the level of the uterine arteries. A bladder flap was created in the bladder was moved distally to the end of the cervix and over the Myrna cup. The bilateral uterine arteries were cauterized and transected. Colpotomy was then performed. In a circumferential fashion the vagina was transected using unipolar cautery. The incision was made down on the Myrna. The uterus and cervix were taken out through the vagina. A pneumo occluder was placed in the vagina. The vaginal cuff was closed with a 0 V lock suture. The pelvis was irrigated with copious amounts antibiotic irrigation. The ureters were again examined and found to be intact and flowing freely under the uterine arteries into the bladder. The bladder was intact. It was examined directly. The vagina was irrigated with Betadine solution after removal of the Pneumo occluder. The patient was taken to recovery room. She was stable condition. Sponge lap and needle counts were correct x2. Estimated Blood Loss 150 Drains Yes Packing No Pathology yes Complications No immediate complications Condition stable Disposition floor
[2020-11-14] MEDS: fentaNYL CITRATE INJ (*CRX) 100 MCG/2 ML VIAL 25 MCG IV PUSH ×2 (12:59→13:01)
[2020-11-14] MEDS: MORPHINE SULFATE (*CRX) 2 MG/ML INJ (14:17)
[2020-11-14] MEDS: ONDANSETRON INJ 4 MG/2 ML VIAL IV PUSH ×2 (14:17→20:19)
[2020-11-14] MEDS: KETOROLAC 30 MG/ML VIAL (*BKC) IV PUSH (14:55)
[2020-11-14] MEDS: HYDROcodone/acetaminophen (*CRX) 10-325 MG TABLET 1 TAB PO ×2 (18:00→21:19)
[2020-11-14] MEDS: MORPHINE SULFATE (*CRX) 2 MG/ML INJ IV PUSH (19:13)
[2020-11-14] MEDS: metFORMIN HCL 500 MG TABLET PO (21:15)
[2020-11-14] MEDS: VENLAFAXINE HCL XR 75 MG CAP.ER.24H 225 MG PO (21:17)
[2020-11-14] MEDS: diphenhydrAMINE HCl INJ 50 MG/ML VIAL 25 MG IV PUSH (21:21)
[2020-11-15 00:30] VITALS: BP 129/72; PULSE 86; RESP 18; TEMP 36.8; O2SAT 97
[2020-11-15] MEDS: HYDROcodone/acetaminophen (*CRX) 10-325 MG TABLET 1 TAB PO ×2 (00:30→08:45)
[2020-11-15 05:00] VITALS: BP 110/78; PULSE 94; RESP 16; TEMP 36.8; O2SAT 95
[2020-11-15] MEDS: IBUPROFEN 600 MG TABLET PO (05:05)
[2020-11-15] MEDS: HYDROcodone/acetaminophen (*CRX) 5-325 MG TABLET 1 TAB PO (05:07)
[2020-11-15 05:51] LABS: Basophils Absolute Auto 0.1 K/mm3 (0.0-0.1); Basophils Percent Auto 0.7 % (0.2-1.2); Eosinophils Absolute Auto 0.8 K/mm3 (0-0.3); Eosinophils Percent Auto 6.6 % (0-4.4); Hematocrit 36.6 % (37.0-47.0); Hemoglobin 12.4 g/dL (12.0-15.0); Immature Granulocyte Absolute 0.05 K/mm3 (0.00-0.031); Immature Granulocyte Percent A 0.4 % (0-0.5); Lymphocytes Absolute Auto 2.98 K/mm3 (0.9-3.2); Lymphocytes Percent Auto 25.4 % (18.3-44.2); Mean Corpuscular HGB Conc 33.9 g/dl (32-36); Mean Corpuscular Hemoglobin 29.7 pg (26-34); Mean Corpuscular Volume 87.8 fl (80-100); Mean Platelet Volume 10.3 fl (7.4-10.4); Monocytes Absolute Auto 0.6 K/mm3 (0.1-0.6); Monocytes Percent Auto 5.5 % (2.6-8.5); Neutrophils Absolute Auto 7.2 K/mm3 (1.3-6.7); Neutrophils Percent Auto 61.4 % (45.5-73.1); Platelet Count Result 245 k/mm3 (150-375); Red Blood Count 4.17 M/mm3 (4.2-5.4); White Blood Count 11.7 K/mm3 (4.5-10.0)
--- NOTE | 2020-11-15 05:59 | PC.NURSE ---
Pt stated that her blood sugar was 192 at HS last night prior to receiving her metformin tablet and this am at 0520 pt states her blood sugar is 106. Pt is requesting diet soda and sabas crackers. Pt's diet advanced for breakfast. BS x4 and + flatus at this time with no n/v.
--- NOTE | 2020-11-15 08:28 | PM.GYNPNOP ---
COLD WORK OPERATOR - A/P Postoperative Procedures: Procedures Operation Date: 11/14/20 09:30 Actual Procedure Side Surgeon p Total Laparoscopic Hysterectomy, Left Salpingo-Oophorectomy Left Kacey Main MD Postoperative day: 1 Postoperative status: doing well and other (Tollerating Regular Diet) Postoperative plan: routine post-op care and discharge Time Spent With Patient Time: Total time spent is greater than 50% in coordination of care (as documented) at patient's floor/unit and/or counseling patient: Time with patient: 15 - 25 minutes COLD WORK OPERATOR- PN:Subj Post-Op Subjective Date/time seen: 11/15/20 08:28 Subjective: patient reports feeling better, pain is well controlled and patient is tolerating oral intake Exam Const: General: cooperative, healthy appearing, comfortable and no acute distress Resp: Auscultation: no crackles, no rales, no rhonchi and no wheezes Cardio: Rhythm: regular rhythm Heart sounds: no click and no murmurs GI: Inspection: non-distended Auscultation: normal bowel sounds Other: Incisions - CDI Extrem: General: normal to inspection, no pedal edema and no calf tenderness COLD WORK OPERATOR - PN: Obj Data Vital Signs Vital Signs: Vital Signs - 24 hr 11/14/20 12:04 11/14/20 12:15 11/14/20 12:30 Temperature 98.2 F Pulse Rate 106 H 105 H 98 Respiratory Rate 13 20 20 Blood Pressure 97/44 L 126/72 128/73 Pulse Oximetry 96 97 94 11/14/20 12:45 11/14/20 13:00 11/14/20 13:15 Temperature Pulse Rate 96 90 97 Respiratory Rate 18 16 18 Blood Pressure 120/73 124/73 120/66 Pulse Oximetry 94 94 94 11/14/20 13:20 11/14/20 13:40 11/14/20 17:15 Temperature 98.1 F 98.8 F Pulse Rate 100 100 88 Respiratory Rate 16 16 20 Blood Pressure 133/80 114/68 Pulse Oximetry 92 92 98 11/14/20 19:00 11/14/20 19:22 11/15/20 00:30 Temperature 98.3 F 98.2 F Pulse Rate 94 94 86 Respiratory Rate 18 18 18 Blood Pressure 109/64 129/72 Pulse Oximetry 96 96 97 11/15/20 05:00 Temperature 98.3 F Pulse Rate 94 Respiratory Rate 16 Blood Pressure 110/78 Pulse Oximetry 95 Intake/Output Intake/Output: Intake & Output 11/12/20 11/13/20 11/14/20 11/15/20 23:59 23:59 23:59 23:59 Intake Total 150 800 Output Total 1340 400 Balance -1190 400 Meds/Results Medications: Active Medications Generic Name Dose Route Start Last Admin Trade Name Freq PRN Reason Stop Dose Admin Hydrocodone Bitart/Acetaminophen 1 tab 11/14/20 13:17 11/15/20 05:07 Hydrocodone/Acetaminophen (*Crx) 5-325 Mg Tablet PO 1 tab Q3H PRN Administration Pain Rated 5 or Less Hydrocodone Bitart/Acetaminophen 1 tab 11/14/20 13:17 11/15/20 00:30 Hydrocodone/Acetaminophen (*Crx) 10-325 Mg Tablet PO 1 tab Q3H PRN Administration Pain Rated 6 or Greater Albuterol 1 puff 11/14/20 13:17 Albuterol Sulfate (*Sp) Aerosol 1 Puff INHALATION PRN PRN wheezing/ SOB Diphenhydramine HCl 25 mg 11/14/20 15:07 11/14/20 21:21 Diphenhydramine Hcl Inj 50 Mg/Ml Vial IV PUSH 25 mg Q4H PRN Administration Itching Estradiol 0.05 mg 11/14/20 09:00 11/14/20 21:29 Estradiol 7 Day 0.05 Mg Patch TRANSDERM Not Given WEEKLY NATE Hydroxyzine HCl 25 mg 11/14/20 13:17 Hydroxyzine Hcl 25 Mg Tablet PO BID PRN Anxiety Dextrose/Sodium Chloride 1,000 mls @ 125 mls/hr 11/14/20 13:17 Dextrose 5% Sodium Chloride 0.45% IV CONT .Q8H NATE Ibuprofen 600 mg 11/14/20 13:17 11/15/20 05:05 Ibuprofen 600 Mg Tablet PO 600 mg Q6H PRN Administration Cramping Ketorolac Tromethamine 30 mg 11/14/20 13:17 11/14/20 14:55 Ketorolac 30 Mg/Ml Vial (*Bkc) IV PUSH 11/19/20 13:18 30 mg Q6H PRN Administration Pain Rated 4-6 Metformin HCl 500 mg 11/14/20 21:00 11/14/20 21:15 Metformin Hcl 500 Mg Tablet PO 500 mg DAILY@2100 [facility] Administration Montelukast Sodium 10 mg 11/15/20 09:00 Montelukast Sodium 10 Mg Tablet PO DAILY [facility] Morphine Sulfate 2 mg 11/14
[2020-11-15 08:30] VITALS: BP 116/78; PULSE 93; RESP 18; TEMP 37; O2SAT 94
[2020-11-15 09:00] VITALS: PULSE 93; RESP 18; O2SAT 94
[2020-11-15] MEDS: ESTRADIOL 7 DAY 0.05 MG PATCH TRANSDERM (10:00)
[2020-11-15] MEDS: MONTELUKAST SODIUM 10 MG TABLET PO (10:00)
== END 2020-11-15 10:15 | disposition home or self-care (01) ==
LOC: ANHSURGERY 07:17 → ANHOB2 13:22
PROVIDERS: PCP Family Medicine; Visit Provider Obstetrics & Gynecology
PROC: 0UT9FZZ Resection of Uterus, Via Natural or Artificial Opening With Percutaneous Endoscopic Assistance (ICD-10-PCS; CPT 58571; principal; 2020-11-14 09:30)
DX: R10.2 Pelvic and perineal pain (principal); N73.6 Female pelvic peritoneal adhesions (postinfective); D25.2 Subserosal leiomyoma of uterus; D25.1 Intramural leiomyoma of uterus; N83.02 Follicular cyst of left ovary; E11.9 Type 2 diabetes mellitus without complications; F41.8 Other specified anxiety disorders; J45.909 Unspecified asthma, uncomplicated; K21.9 Gastro-esophageal reflux disease without esophagitis; F43.10 Post-traumatic stress disorder, unspecified; Z79.84 Long term (current) use of oral hypoglycemic drugs; Z79.51 Long term (current) use of inhaled steroids; E66.9 Obesity, unspecified; Z68.37 Body mass index [BMI] 37.0-37.9, adult
CPT/HCPCS: 58571; 36415; 82948; 85025; 88307; 99199; A9270; J0330; J0690; J1200; J1885; J2250; J2270; J2405; J2704; J3010; J7030; J7120

== ENCOUNTER 2020-11-24 12:17 | Emergency (ER) | payer BC, SELFPAY ==
[2020-11-24 12:50] VITALS: BP 133/84; PULSE 91; RESP 18; TEMP 36.3; O2SAT 98
--- NOTE | 2020-11-24 12:53 | ED.ABDPAIN ---
HPI - Abdominal Pain General Chief Complaint: Abdominal Pain Stated Complaint: Constipation,Chills,Lower abdominal pain History of Present Illness HPI narrative: This is a 35-year-old female presented to urgent care with complaints of nausea ,vomiting, subjective fever, abdominal pain, and chills. Patient recently had a hysterectomy on November 14 she did call her primary care physician's office and he instructed her to go to urgent care or emergency department. Patient describes her abdominal pain as cramping and occasional stabbing that is intermittent. She notes overnight her pain was unbearable and not relieved by any home medication. The patient denies SOB, CP, palpitation, extremity numbness, lightheadedness, dizziness, diarrhea, or fever. Patient is being transferred to [facility] for further diagnostic testing accepted by Dr. GROSS amended report given to Jeramie MENDOZA MD elicited complaint: abdominal pain (Generalized for hysterectomy) Related Data Home Medications Medication Instructions Recorded Confirmed trazodone 100 mg PO HS 03/06/19 11/14/20 venlafaxine 225 mg PO HS 03/06/19 11/14/20 hydroxyzine HCl 25 mg PO BID PRN 04/14/20 11/14/20 albuterol sulfate 90 mcg INHALATION PRN PRN 11/08/20 11/14/20 cyclobenzaprine 10 mg PO PRN PRN 11/24/20 11/24/20 estradiol 1 mg PO DAILY 11/24/20 11/24/20 metformin 500 mg PO BID 11/24/20 11/24/20 Allergies Allergy/AdvReac Type Severity Reaction Status Date / Time Corticosteroids Allergy Intermediate SWELLING Verified 11/24/20 12:52 (Glucocorticoids) AT INJECTION SITE cortisone Allergy Intermediate Swelling Verified 11/24/20 12:52 exofin glue Allergy Mild Rash Uncoded 11/24/20 12:52 Surgical prep Allergy Mild Rash Uncoded 11/24/20 12:52 Review of Systems Review of Systems: Narrative: A 14 organ system Review of Systems was performed and pertinent positives included in the HPI, otherwise remaining ROS is negative. All systems reviewed & are unremarkable except as noted in HPI and below PMFSH Past Medical History Medical History (Updated 11/13/20 @ 15:22 by Luis Daniel Manning DO) Anxiety Asthma Depression Elevated liver enzymes GERD (gastroesophageal reflux disease) History of endometriosis Migraine PID (pelvic inflammatory disease) PTSD (post-traumatic stress disorder) Right ovarian cyst Type 2 diabetes mellitus without complications Surgical History Surgical History (Updated 11/13/20 @ 15:22 by Luis Daniel Manning DO) H/O arthroscopy of right knee History of appendectomy History of removal of ovarian cyst History of tonsillectomy and adenoidectomy Family History Family History Mother Family history of mental disorder Depression Father Hypertension Grandparent Family history of pancreatic cancer Family history of lung cancer Family history of malignant neoplasm of breast Other Diabetes mellitus Family history of malignant neoplasm of male breast Social History Social History Smoking status: Never smoker Second hand tobacco smoke exposure: No Drinks per week: 4 Alcohol use details: hard alcohol Substance use: never Substance use type: does not use Gender identity (if verbalized by the patient): Female Spiritual care concerns: No Exam Narrative: Exam Narrative: GENERAL: This is a well-nourished, well-developed patient, in no apparent distress. HEAD: normocephalic, atraumatic. EYES: PERRL. Sclera clear/white. Vision is grossly intact. EARS: External ears normal, auditory canals clear and without drainage, TMs normal without perforation. Hearing grossly intact. NOSE: External nose normal with no obvious nasal discharge, nares without redness, no rhinorrhea. THROAT: Mucous membranes moist, posterior pharynx clear. NECK: Neck supple, non-tender without lymphadenopathy, masses or thyromegaly. CARDIOVASCULA
== END 2020-11-24 13:00 | disposition short-term general hospital (02) ==
PROVIDERS: Emergency Provider Nurse Practitioner; PCP Family Medicine
DX: R10.9 Unspecified abdominal pain (principal); F41.9 Anxiety disorder, unspecified; J45.909 Unspecified asthma, uncomplicated; F32.9 Major depressive disorder, single episode, unspecified; K21.9 Gastro-esophageal reflux disease without esophagitis; N80.9 Endometriosis, unspecified; N73.9 Female pelvic inflammatory disease, unspecified; E11.9 Type 2 diabetes mellitus without complications
CPT/HCPCS: 99211; 99212; G0463

== ENCOUNTER 2020-11-24 13:16 | Emergency (ER) | payer BC, SELFPAY ==
--- NOTE | ~2020-11-24 | CT_ITS ---
EXAMINATION: CT abdomen pelvis w con DATE: 11/24/2020 17:37 INDICATION: Left lower quadrant pain. Hysterectomy on 11/14/2020. TECHNIQUE: Computed tomography (CT) of the abdomen was performed with 100 cc Omnipaque 350 intravenou s contrast. Automated exposure control and iterative reconstruction technique were employed. Exam dos e: 661.29 mGy-cm total exam DLP. COMPARISON: June 26, 2020 CT abdomen pelvis FINDINGS: The lung bases are clear of infiltrate or consolidation. Normal heart size. No pericardial or pleural effusion. Diffuse hepatic steatosis. No hepatic, splenic, pancreatic, adrenal or renal space-occupying mass les ion is detected. No urinary tract calculus or hydroureteronephrosis. The urinary bladder is unremarka ble. Status post hysterectomy. There is mild thickening of the anterior pararenal fascia lower abdomen/pel shannan area and minimal free fluid, likely postsurgical change. No abscess is identified. No intraperito adela free air. There are some fluid containing small bowel segments and scattered small bowel air-flu id levels, likely mild postoperative adynamic ileus. No bowel obstruction, bowel wall thickening, pne umatosis. Normal appendix. Normal caliber of the abdominal aorta. Separate origin of the hepatic artery from the aorta. No intra peritoneal or retroperitoneal or pelvic mass lesion or adenopathy or ascites. Left L5 pars interarticularis defect. No spondylolisthesis. The included skeletal structures are othe rwise unremarkable. IMPRESSION: Recent hysterectomy; no evidence of abscess or hydroureteronephrosis Diffuse hepatic steatosis Chronic left L5 pars interarticularis defect Reviewed, dictated and finalized at [facility] Reviewed, dictated and finalized at [facility] IMPRESSION: Recent hysterectomy; no evidence of abscess or hydroureteronephros is Diffuse hepatic steatosis Chronic left L5 pars interarticularis defect
[2020-11-24 13:32] VITALS: BP 143/90; PULSE 88; RESP 20; TEMP 36.4; O2SAT 99
[2020-11-24 14:42] LABS: Basophils Absolute Auto 0.1 K/mm3 (0.0-0.1); Basophils Percent Auto 0.9 % (0.2-1.2); Eosinophils Absolute Auto 0.9 K/mm3 (0-0.3); Eosinophils Percent Auto 7.9 % (0-4.4); Hematocrit 41.8 % (37.0-47.0); Hemoglobin 14.6 g/dL (12.0-15.0); Immature Granulocyte Absolute 0.09 K/mm3 (0.00-0.031); Immature Granulocyte Percent A 0.8 % (0-0.5); Lymphocytes Absolute Auto 3.98 K/mm3 (0.9-3.2); Lymphocytes Percent Auto 33.3 % (18.3-44.2); Mean Corpuscular HGB Conc 34.9 g/dl (32-36); Mean Corpuscular Hemoglobin 29.6 pg (26-34); Mean Corpuscular Volume 84.6 fl (80-100); Mean Platelet Volume 10.2 fl (7.4-10.4); Monocytes Absolute Auto 0.6 K/mm3 (0.1-0.6); Monocytes Percent Auto 5.1 % (2.6-8.5); Neutrophils Absolute Auto 6.2 K/mm3 (1.3-6.7); Platelet Count Result 315 k/mm3 (150-375); Red Blood Count 4.94 M/mm3 (4.2-5.4)
[2020-11-24 14:47] LABS: Add Urine Microscopic? NO; Appearance Urine Clear (Clear); Bilirubin Urine Negative (Negative); Blood Urine Negative (Negative); Color Urine Yellow (Yellow); Glucose Urine UA Negative (Negative); Ketones Urine Negative (Negative); Leukocyte Esterase Ur Negative LEU/UL (Negative); Nitrate Urine Negative (Negative); Protein Urine Negative (Negative); Specific Grav Ur 1.027 (1.001-1.035); Urobilinogen Urine Negative mg/dL (<2.0)
--- NOTE | 2020-11-24 15:07 | ED.ABDPAIN ---
HPI - Abdominal Pain General Chief Complaint: Abdominal Pain Stated Complaint: abd pain Time Seen by Provider: 11/24/20 15:07 History of Present Illness HPI narrative: LLQ abdominal pain since yesterday. Assocaited with nausea and fever up to 101. She has also been constipated. laparoscopic hysterectomy on 11/14. Related Data Home Medications Medication Instructions Recorded Confirmed trazodone 100 mg PO HS 03/06/19 11/24/20 venlafaxine 225 mg PO HS 03/06/19 11/24/20 hydroxyzine HCl 25 mg PO BID PRN 04/14/20 11/24/20 estradiol 1 mg PO DAILY 11/24/20 11/24/20 metformin 500 mg PO BID 11/24/20 11/24/20 Allergies Allergy/AdvReac Type Severity Reaction Status Date / Time Corticosteroids Allergy Intermediate SWELLING Verified 11/24/20 14:49 (Glucocorticoids) AT INJECTION SITE cortisone Allergy Intermediate Swelling Verified 11/24/20 14:49 exofin glue Allergy Mild Rash Uncoded 11/24/20 14:49 Surgical prep Allergy Mild Rash Uncoded 11/24/20 14:49 Review of Systems Review of Systems: All systems reviewed & are unremarkable except as noted in HPI and below Constitutional: Constitutional: Denies chills and Denies fever(s) ENT: Reports system reviewed and no additional complaints, except as documented Cardiovascular: Cardiovascular: Denies chest pain Respiratory: Respiratory: Denies dyspnea Gastrointestinal: Gastrointestinal: Reports as per HPI Genitourinary: Genitourinary: Denies abnormal vaginal bleeding and Denies vaginal discharge Neurologic: Denies dizziness and Denies weakness [facility] Past Medical History Medical History (Updated 11/24/20 @ 18:39 by Alexis Santillan MD) Anxiety Asthma Depression Elevated liver enzymes GERD (gastroesophageal reflux disease) History of endometriosis Migraine PID (pelvic inflammatory disease) PTSD (post-traumatic stress disorder) Right ovarian cyst Type 2 diabetes mellitus without complications Surgical History Surgical History (Updated 11/13/20 @ 15:22 by Luis Daniel Manning DO) H/O arthroscopy of right knee History of appendectomy History of removal of ovarian cyst History of tonsillectomy and adenoidectomy Family History Family History Mother Family history of mental disorder Depression Father Hypertension Grandparent Family history of pancreatic cancer Family history of lung cancer Family history of malignant neoplasm of breast Other Diabetes mellitus Family history of malignant neoplasm of male breast Social History Social History Smoking status: Never smoker Second hand tobacco smoke exposure: No Drinks per week: 4 Alcohol use details: hard alcohol Substance use: never Substance use type: does not use Gender identity (if verbalized by the patient): Female Spiritual care concerns: No Exam Const: General: healthy appearing, no acute distress and alert Orientation/consciousness: patient oriented x3 HENMT: Head: normal to inspection Neck: Neck: normal visual inspection Resp: Effort & Inspection: normal respiratory effort Auscultation: clear to auscultation bilaterally, no rales, no rhonchi and no wheezes Cardio: Jugular venous distension: no JVD Rate: regular rate Rhythm: regular rhythm Heart sounds: no murmurs GI: Inspection: non-distended GI Palp: Yes Soft to palpation and Yes Tenderness to palpation present (GI) (LLQ ) Skin: General skin exam: normal color Neuro: General: patient oriented x3 and moves all extremities Speech: normal speech Extrem: General: no edema Psych: Appearance: well kempt Affect: normal affect Course Vital Signs Vital signs: Vital Signs Temperature 36.4 C L 11/24/20 13:32 Pulse Rate 88 11/24/20 13:32 Respiratory Rate 20 11/24/20 13:32 Blood Pressure 143/90 H 11/24/20 13:32 Pulse Oximetry 99 11/24/20 13:32 Temperature 36.4 C
[2020-11-24 15:08] VITALS: BP 102/87; PULSE 91; RESP 18; O2SAT 95
[2020-11-24] MEDS: fentaNYL CITRATE INJ (*CRX) 100 MCG/2 ML VIAL 50 MCG IV PUSH (15:51)
[2020-11-24] MEDS: ONDANSETRON INJ 4 MG/2 ML VIAL IV PUSH (15:52)
[2020-11-24 16:50] VITALS: BP 122/89; PULSE 72; RESP 18; O2SAT 97
[2020-11-24 17:04] LABS: Alanine Aminotransferase 94 U/L (4-35); Albumin Level 5.2 g/dL (3.5-5.1); Alkaline Phosphatase 83 U/L (38-126); Anion Gap 16 mmol/L (8-16); Aspartate Amino Transferase 54 U/L (14-36); Bilirubin,Total 0.6 mg/dL (0.2-1.3); Blood Urea Nitrogen 10 mg/dL (7-17); Calcium 10.1 mg/dL (8.4-10.2); Carbon Dioxide 22 mmol/L (22-30); Chloride 99 mmol/L (98-107); Estimated CRCL calculation 116 ml/min; Estimated Glomerular Filt Rate > 60; Glucose 98 mg/dL (65-110); Lipase 50 U/L (23-300); Sodium 137 mmol/L (137-145)
[2020-11-24 18:34] VITALS: BP 123/83; PULSE 93; RESP 18; O2SAT 100
== END 2020-11-24 19:11 | disposition home or self-care (01) ==
PROVIDERS: Emergency Medicine; Emergency Provider Emergency Medicine; PCP Family Medicine
DX: R10.32 Left lower quadrant pain (principal); J45.909 Unspecified asthma, uncomplicated; K21.9 Gastro-esophageal reflux disease without esophagitis; E11.9 Type 2 diabetes mellitus without complications; N80.9 Endometriosis, unspecified; F43.10 Post-traumatic stress disorder, unspecified; F41.9 Anxiety disorder, unspecified; F32.9 Major depressive disorder, single episode, unspecified; Z79.84 Long term (current) use of oral hypoglycemic drugs; K76.0 Fatty (change of) liver, not elsewhere classified
CPT/HCPCS: 36415; 74177; 80053; 81003; 83690; 85025; 96374; 96375; 99284; J2405; J3010; Q9967